=== PATIENT | male | born 1945 | race Two or more races ===

== ENCOUNTER 2018-12-20 03:10 | Emergency (ER) | payer MEDICARE ==
[2018-12-20 03:51] VITALS: BP 137/69
== END 2018-12-20 03:53 | disposition home or self-care (01) ==
LOC: ED 03:45
DX: I10 Essential (primary) hypertension (principal); R42 Dizziness and giddiness; E11.9 Type 2 diabetes mellitus without complications
CPT/HCPCS: 99283